=== PATIENT | male | born 1990 | race Caucasian/White ===

== ENCOUNTER 2017-11-23 19:40 | Emergency (ER) | payer SELFPAY ==
[2017-11-23 20:23] VITALS: BP 126/76
[2017-11-23] MEDS ORDERED: MOTRIN PO ONE (20:24)
[2017-11-23] MEDS ORDERED: MOTRIN ONE (20:26)
--- NOTE | 2017-11-23 22:25 | XRay Report ---
FINAL REPORT PROCEDURE: XR HAND 2V RT TECHNIQUE: Right hand radiographs, AP and lateral views. CPT 53620 HISTORY: pain COMPARISON: No prior studies are available for comparison. FINDINGS: Fracture (s) and/or Dislocation(s): None . Alignment: Normal . Joint space(s): Normal . Soft tissues: Normal . Bone mineralization: Normal . Foreign bodies: None . IMPRESSION: Normal Examination .
--- NOTE | 2017-11-24 01:13 | Emergency Department Report ---
ED Upper Extremity Inj HPI - General Chief Complaint: Extremity Injury, Upper Stated Complaint: SWOLLEN HAND Time Seen by Provider: 11/24/17 01:08 Source: patient Mode of arrival: Ambulatory Limitations: No Limitations - History of Present Illness Initial Comments: Patient is a 27-year-old male who is presenting with right hand pain. 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 Patient is having pain at the volar surface of the fifth digit at the MCP joint. There is a small puncture wound that has drained some purulent material in the past was not draining today. Patient states that he has swelling there wrapped around to the dorsum of the hand in that area. Patient is able to extend and flex the hand. Patient does not have any pain along the flexor tendon of the fifth digit. Patient denies any nausea vomiting fevers chills at this time. Symptoms present for approximately 2 days. - Related Data Previous Rx's Medication Instructions Recorded Last Taken Type Doxycycline [Vibramycin CAP] 100 mg PO Q12HR #20 capsule 11/24/17 Unknown Rx HYDROcodone/APAP 5-325 [Rosebud 1 each PO Q6HR PRN #14 tablet 11/24/17 Unknown Rx 5/325] Ibuprofen [Motrin] 800 mg PO Q8HR PRN #20 tablet 11/24/17 Unknown Rx Allergies Allergy/AdvReac Type Severity Reaction Status Date / Time No Known Allergies Allergy Unverified 11/23/17 20:23 ED Review of Systems ROS: Stated complaint: SWOLLEN HAND Other details as noted in HPI Comment: All other systems reviewed and negative ED Past Medical Hx - Past Medical History Hx Asthma: Yes - Surgical History Additional Surgical History: Repair of Congenital Heart Disease - Social History Smoking Status: Current Every Day Smoker Substance Use Type: None - Medications Home Medications: Home Medications Medication Instructions Recorded Confirmed Last Taken Type Doxycycline [Vibramycin CAP] 100 mg PO Q12HR #20 capsule 11/24/17 Unknown Rx HYDROcodone/APAP 5-325 [Rosebud 1 each PO Q6HR PRN #14 tablet 11/24/17 Unknown Rx 5/325] Ibuprofen [Motrin] 800 mg PO Q8HR PRN #20 tablet 11/24/17 Unknown Rx ED Physical Exam - General Limitations: No Limitations General appearance: alert, in no apparent distress - Head Head exam: Present: atraumatic, normocephalic - Eye Eye exam: Present: normal appearance - ENT ENT exam: Present: mucous membranes moist - Neck Neck exam: Present: normal inspection - Respiratory Respiratory exam: Present: normal lung sounds bilaterally. Absent: respiratory distress - Cardiovascular Cardiovascular Exam: Present: regular rate, normal rhythm. Absent: systolic murmur, diastolic murmur, rubs, gallop - GI/Abdominal GI/Abdominal exam: Present: soft, normal bowel sounds - Rectal Rectal exam: Present: deferred - Extremities Exam Extremities exam: Present: normal inspection, full ROM, tenderness (patient has tenderness at the proximal fifth digit on the right hand small puncture wound at the MCP joint is no active drainage. Patient has mild erythema and swelling in the area after mentioned extending down through the palm on the volar ulnar side around the dorsum.) - Back Exam Back exam: Present: normal inspection - Neurological Exam Neurological exam: Present: alert, oriented X3 - Psychiatric Psychiatric exam: Present: normal affect, normal mood - Skin Skin exam: Present: warm, dry, intact, normal color. Absent: rash ED Course Vital Signs 11/23/17 20:18 Temperature 97.8 F Pulse Rate 66 Respiratory 16 Rate Blood Pressure 126/76 O2 Sat by Pulse 100 Oximetry ED Medical Decision Making - Radiology Data Radiology results: report reviewed No acute process - Medical Decision Making She'll be started on Doxy and will be discharged home. Patient was told that if the swelling does not improve he may need to come back for IV antibiotics. Critical care attestation.: If time is entered above; I have spent that time in minutes in the direct care of this critically ill patient, excluding procedure time. ED Disposition Clinical Impression: Cellulitis of hand Disposition: [id number] TO HOME OR SELFCARE Is pt being admited?: No Does the pt Need Aspirin: No Condition: Stable Instructions: Cellulitis (ED) Prescriptions: Doxycycline [Vibramycin CAP] 100 mg PO Q12HR #20 capsule HYDROcodone/APAP 5-325 [Rosebud 5/325] 1 each PO Q6HR PRN #14 tablet PRN Reason: Pain Ibuprofen [Motrin] 800 mg PO Q8HR PRN #20 tablet PRN Reason: Pain Referrals: GREGORIO BAUTISTA MD [Staff Physician] - 3-5 Days
== END 2017-11-24 01:13 | disposition home or self-care (01) ==
LOC: ED 19:40
DX: L03.113 Cellulitis of right upper limb (principal); J45.909 Unspecified asthma, uncomplicated; F17.200 Nicotine dependence, unspecified, uncomplicated
CPT/HCPCS: 99283

== ENCOUNTER 2018-03-09 19:35 | Emergency (ER) | payer SELFPAY ==
[2018-03-09 20:18] VITALS: BP 131/77
== END 2018-03-09 23:20 | disposition left against medical advice (07) ==
LOC: ED 19:35
DX: M79.601 Pain in right arm (principal); Z53.21 Procedure and treatment not carried out due to patient leaving prior to being seen by health care provider